=== PATIENT | female | born 1955 | race Caucasian/White ===

== ENCOUNTER → 2024-10-01 09:41 | Outpatient (REF) | payer MEDICARE, BC, SELFPAY | LOC: HWWDC 09:41 | PROVIDERS: ATTENDING PHYSICIAN Internal Medicine Endocrinology, Diabetes & Metabolism; FAMILY PHYSICIAN Family Medicine | DX: Z12.31 Encounter for screening mammogram for malignant neoplasm of breast (principal) | CPT/HCPCS: 77063; 77067 ==

== ENCOUNTER → 2024-10-02 08:52 | Outpatient (REF) | payer MEDICARE, BC, SELFPAY ==
[2024-10-02 12:53] LABS: ALT (SGPT) 26 U/L (0-35); AST (SGOT) 25 U/L (14-36); Albumin 5.1 g/dl (3.5-5.0); Alkaline Phosphatase 74 U/L (38-126); Blood Urea Nitrogen 18 mg/dl (7-17); Calcium 9.9 mg/dl (8.4-10.2); Carbon Dioxide 26 mmol/L (22-30); Chloride 100 mmol/L (98-107); Glucose 92 mg/dl (70-99); Potassium 4.2 mmol/L (3.5-5.1); Sodium 136 mmol/L (135-145); Total Bilirubin 1.5 mg/dl (0.2-1.3); Total Protein 7.6 g/dl (6.3-8.2); eGFR > 60.00
== END ==
LOC: HWLAB 08:52
PROVIDERS: ATTENDING PHYSICIAN Internal Medicine Endocrinology, Diabetes & Metabolism; FAMILY PHYSICIAN Family Medicine
DX: M81.0 Age-related osteoporosis without current pathological fracture (principal); E55.9 Vitamin D deficiency, unspecified
CPT/HCPCS: 36415; 80053; 82306

== ENCOUNTER → 2024-10-06 11:12 | Outpatient (REF) | payer MEDICARE, BC, SELFPAY | LOC: HWRAD 11:12 | PROVIDERS: ATTENDING PHYSICIAN Internal Medicine Endocrinology, Diabetes & Metabolism; FAMILY PHYSICIAN Family Medicine | DX: M81.0 Age-related osteoporosis without current pathological fracture (principal); E88.9 Metabolic disorder, unspecified | CPT/HCPCS: 77080 ==

== ENCOUNTER → 2024-11-10 11:55 | Outpatient (REF) | payer MEDICARE, BC, SELFPAY | LOC: HWRAD 11:55 | PROVIDERS: ATTENDING PHYSICIAN Internal Medicine Critical Care Medicine; FAMILY PHYSICIAN Family Medicine | DX: J45.901 Unspecified asthma with (acute) exacerbation (principal) | CPT/HCPCS: 71046 ==

== ENCOUNTER → 2025-06-02 07:13 | Outpatient (REF) | payer MEDICARE, BC, SELFPAY ==
[2025-06-02 09:28] LABS: Hematocrit 43.8 % (37.0-47.0); Hemoglobin 14.8 g/dL (12.0-16.0); Mean Corp Hgb Conc. 33.8 g/dL (33.0-37.0); Mean Corpuscular Volume 90.3 fL (81.0-99.0); Nucleated Red Blood Cells % 0 %; Platelet Count 289 10^3/uL (130-400); Red Cell Dist. Width 12.3 % (11.5-14.5)
[2025-06-02 09:34] LABS: ALT (SGPT) 26 U/L (0-35); AST (SGOT) 26 U/L (14-36); Albumin 4.9 g/dl (3.5-5.0); Alkaline Phosphatase 66 U/L (38-126); Blood Urea Nitrogen 15 mg/dl (7-17); Calcium 9.4 mg/dl (8.4-10.2); Carbon Dioxide 27 mmol/L (22-30); Chloride 101 mmol/L (98-107); Glucose 93 mg/dl (70-99); HDL Cholesterol 60 mg/dl; LDL Cholesterol, Calculated 166 mg/dl; Potassium 4.3 mmol/L (3.5-5.1); Sodium 137 mmol/L (135-145); Total Protein 7.7 g/dl (6.3-8.2); Very Low Density Lipoprotein 41 mg/dl (0-30); eGFR > 60.00
[2025-06-02 09:54] LABS: Vitamin D, 25-OH*** 31.8 ng/mL (30-80)
[2025-06-02 09:55] LABS: Glycohemoglobin (HgbA1c) 5.5 % (4.0-5.9)
[2025-06-02 10:08] LABS: CEA 6.85 ng/ml
== END ==
LOC: HWRAD 07:13
PROVIDERS: ATTENDING PHYSICIAN Physician Assistant Medical; FAMILY PHYSICIAN Family Medicine
DX: Z00.00 Encounter for general adult medical examination without abnormal findings (principal); E55.9 Vitamin D deficiency, unspecified; E04.1 Nontoxic single thyroid nodule; K76.0 Fatty (change of) liver, not elsewhere classified; R73.09 Other abnormal glucose; E78.5 Hyperlipidemia, unspecified; R97.0 Elevated carcinoembryonic antigen [CEA]
CPT/HCPCS: 36415; 76700; 80053; 80061; 82306; 82378; 83036; 84443; 85025

== ENCOUNTER → 2025-06-16 12:12 | Outpatient (REF) | payer MEDICARE, BC, SELFPAY | LOC: RAD 12:12 | PROVIDERS: ATTENDING PHYSICIAN Physician Assistant Medical; FAMILY PHYSICIAN Family Medicine | DX: R97.0 Elevated carcinoembryonic antigen [CEA] (principal); K76.0 Fatty (change of) liver, not elsewhere classified | CPT/HCPCS: 74178; Q9967 ==